=== PATIENT | female | born 1995 | race Caucasian/White ===

== ENCOUNTER 2018-10-05 10:00 | Emergency (ER) | payer BC ==
--- NOTE | 2018-10-05 10:11 | UC ---
Skin Complaint HPI - HPI Summary HPI Summary: 22 yo female presents accompanied by mother with ?infection to belly button piercing. Pt states that she had her belly button pierced about 6 weeks ago. Over the last 4-5 days has noticed redness, pain, and scant drainage from the piercing site. She applied a warm compress yesterday and states that she had a lot of drainage after this. Today noticed that the redness has spread in a nome around the pierced site. She has not removed the piercing. Denies fever or chills. No hx of MRSA. No concern for hepatitis or communicable disease today. States the place she had the piercing done was clean. - History of Current Complaint Time Seen by Provider: 10/05/18 10:10 Stated Complaint: SKIN ISSUE Hx Obtained From: Patient Hx Last Menstrual Period: 08/31/12 Onset/Duration: Gradual Onset Onset Severity: Mild Current Severity: Mild Pain Intensity: 2 Pain Scale Used: 0-10 Numeric - Allergy/Home Medications Allergies/Adverse Reactions: Allergies Allergy/AdvReac Type Severity Reaction Status Date / Time No Known Allergies Allergy Unverified 10/05/18 10:14 Home Medications: Home Medications Norgestimate-Ethinyl Estradiol [Ortho Tri-Cyclen Lo Tablet] 1 each PO DAILY 09/18 [History Confirmed 10/05/18] PMH/Surg Hx/FS Hx/Imm Hx Respiratory History: Asthma - Surgical History Surgical History: None - Family History Known Family History: Positive: None - Social History Occupation: Student Lives: With Family Alcohol Use: Occasionally Substance Use Type: None Smoking Status (MU): Never Smoked Tobacco Review of Systems All Other Systems Reviewed And Are Negative: Yes Constitutional: Positive: Negative Skin: Positive: Other - Belly button piercing infection Respiratory: Positive: Negative Cardiovascular: Positive: Negative Neurovascular: Positive: Negative Neurological: Positive: Negative Psychological: Positive: Negative Physical Exam - Summary Physical Exam Summary: GENERAL: NAD. WDWN. No pain distress. SKIN: Umbilicus: 2.5cm area of mild surrounding erythema. Piercing in place. NTTP. No warmth, streaking, drainage, or bleeding. CHEST: No accessory muscle use. Breathing comfortably and in no distress. CV: Pulses intact. Cap refill <2seconds NEURO: Alert. PSYCH: Age appropriate behavior. Triage Information Reviewed: Yes Vital Signs: Vital Signs (72 hours) 10/05/18 10:10 Temperature 98.5 F Pulse Rate 98 Respiratory 16 Rate Blood Pressure 120/77 (mmHg) O2 Sat by Pulse 98 Oximetry Vital Signs Reviewed: Yes Course/Dx - Course Course Of Treatment: Belly button piercing infection/cellulitis. Will start her with bactroban and keflex. Advised to remove the piercing after 2 days of being on anbx and allow skin to heal. - Diagnoses Provider Diagnosis: Infected piercing of trunk Discharge - Sign-Out/Discharge Documenting (check all that apply): Patient Departure All imaging exams completed and their final reports reviewed: No Studies - Discharge Plan Condition: Stable Disposition: HOME Prescriptions: Cephalexin CAP* [Keflex CAP*] 500 mg PO BID #14 cap Mupirocin 2% OINT* [Bactroban 2 % Oint*] 1 applic TOPICAL BID #1 tube Patient Education Materials: Pierced [place] Infection (ED) Referrals: Bebeto Starks MD [Primary Care Provider] - Additional Instructions: If you develop a fever, shortness of breath, chest pain, new or worsening symptoms - please call your PCP or go to the ED immediately. 1) I recommend taking the antibiotics for 2 days and then removing your piercing to allow the skin to fully heal. May get the site re-pierced at a later date after the infection has resolved. 2) If you do not want to remove the piercing, the infection will likely return when you stop taking the antibiotic. - Billing Disposition and Condition Condition: STABLE Disposition: Home
[2018-10-05 10:15] VITALS: BP 120/77
== END 2018-10-05 10:25 | disposition home or self-care (01) ==
LOC: UCEAST 10:00
DX: L08.9 Local infection of the skin and subcutaneous tissue, unspecified (principal); W26.8XXA Contact with other sharp object(s), not elsewhere classified, initial encounter; Y92.9 Unspecified place or not applicable
CPT/HCPCS: 99202; G0463

== ENCOUNTER 2019-03-22 10:15 | Emergency (ER) | payer BC ==
[2019-03-22 10:23] VITALS: BP 142/78
--- NOTE | 2019-03-22 10:37 | ED ---
Respiratory - HPI Summary HPI Summary: started with runny nose, slight dry cough 7-8 day sago, has gotten worse over past 3 days. now cough is phlegmy and wong chest, also nasal congestion and sinus pressure has increased took danielle D with little relief today - History of Current Complaint Chief Complaint: UCRespiratory Stated Complaint: COUGH STUFFY NOSE EAR PAIN Time Seen by Provider: 03/22/19 10:20 Hx Obtained From: Patient, Family/Respiratory Therapy Manager Onset/Duration: Gradual Onset Timing: Constant Initial Severity: Mild Current Severity: Moderate Pain Intensity: 6 Character: Cough (Productive) Sputum Amount: Small Sputum Color: Yellow Aggravating Factor(s): Exertion, Deep Breaths Alleviating Factor(s): Nothing Associated Signs and Symptoms: Chest Pain with Cough, Nasal Congestion - Allergy/Home Medications Allergies/Adverse Reactions: Allergies Allergy/AdvReac Type Severity Reaction Status Date / Time No Known Allergies Allergy Verified 03/22/19 10:24 PMH/Surg Hx/FS Hx/Imm Hx Previously Healthy: Yes Infectious Disease History: No Infectious Disease History: Denies: Traveled Outside the [place] in Last 30 Days - Family History Known Family History: Positive: None - Social History Occupation: Student Lives: With Family Alcohol Use: Occasionally Substance Use Type: Reports: None Smoking Status (MU): Never Smoked Tobacco Review of Systems Constitutional: Negative Positive: Fatigue Eyes: Negative Positive: Ear Ache, Nasal Discharge. Negative: Sore Throat Cardiovascular: Negative Positive: Cough. Negative: Shortness Of Breath Gastrointestinal: Negative Negative: Diarrhea, Nausea Musculoskeletal: Negative Skin: Negative Neurological: Negative Negative: Headache Psychological: Normal All Other Systems Reviewed And Are Negative: Yes Physical Exam Triage Information Reviewed: Yes Vital Signs On Initial Exam: Initial Vitals Temp Pulse Resp BP Pulse Ox 98.2 F 77 16 142/78 100 03/22/19 10:21 03/22/19 10:21 03/22/19 10:21 03/22/19 10:21 03/22/19 10:21 Appearance: Positive: Well-Appearing, No Pain Distress, Well-Nourished Skin: Positive: Warm, Dry Eyes: Positive: Normal ENT: Positive: Pharynx normal, Nasal congestion, TM dull - Left TM dull. Negative: Sinus tenderness Respiratory/Lung Sounds: Positive: Clear to Auscultation, Other - deep harsh prod cough with deep breaths Cardiovascular: Positive: Normal, RRR Psychiatric: Positive: Normal Diagnostics - Vital Signs Vital Signs Temp Pulse Resp BP Pulse Ox 03/22/19 10:21 98.2 F 77 16 142/78 100 - Laboratory Lab Statement: Any lab studies that have been ordered have been reviewed, and results considered in the medical decision making process. Disposition - Differential Dx - Cardiopulmonary Differential Diagnoses - Cardiopulmonary: Bronchitis, Influenza, Lower Resp Infection, Sinusitis - Diagnoses Provider Diagnoses: Bronchitis Discharge ED - Sign-Out/Discharge Documenting (check all that apply): Patient Departure All imaging exams completed and their final reports reviewed: No Studies - Discharge Plan Condition: Good Disposition: HOME Patient Education Materials: Acute Bronchitis (ED) Referrals: No Primary Care Phys,NOPCP [Primary Care Provider] - Additional Instructions: drink plenty of fluids and rest try over the counter DayQuil/NyQuil for symptom relief start zithromax antibiotic and take as directed return if symptoms worsen at anytime - Billing Disposition and Condition Condition: GOOD Disposition: Home
== END 2019-03-22 10:45 | disposition home or self-care (01) ==
LOC: UCEAST 10:15
DX: J40 Bronchitis, not specified as acute or chronic (principal); R09.81 Nasal congestion; H92.09 Otalgia, unspecified ear
CPT/HCPCS: 99212; G0463